=== PATIENT | male | born 1965 | race Caucasian/White ===

== ENCOUNTER → 2019-07-28 15:04 | Outpatient (CLI) | payer OTHER, SELFPAY ==
--- NOTE | 2019-07-28 | CT_ITS ---
PROCEDURE: CT LUNG SCREENING CLINICAL INDICATION: PERSONAL HX OF NICOTINE DEPENDENCE Thirty-one pack-year smoking history, asymptomatic for lung cancer COMPARISON: No exams were available for comparison TECHNIQUE: The exam was performed on a GE Light Speed [address] scanner using 2.90 mGy CTDI. A low dose helical CT CHEST was performed on a multi-detector scanner. All CT scans at the facility use one or more dose reduction, viz: automated exposure control, ma/kV adjustment per patient size (including targeted exams where dose is matched to indication, i.e. head), or iterative reconstruction technique. The LDCT was performed in a facility that meets the criteria for the screening program. Data regarding this exam was submitted to ACR which is an approved registry. The order for this exam indicates that it came as a result of a lung cancer screening counseling shard decision-making visit that included all the elements required of such a visit including smoking cessation. The radiologist interpreting this exam meets the CMS criteria for the LDCT lung cancer screening program. The exam is reported using the Lung-RADS classification scale and reported to the ACR registry. NOTE: This study was performed for the specific purposes of lung cancer screening and is not an alternative to diagnostic chest CT. RADIATION DOSE: CTDI vol(CT dose Index-volume) = 2.90mG DLP (Dose Length Product) = 97.95 mGcm FINDINGS: COPD changes. 4 mm noncalcified nodule right middle lobe image 52 series 4. Calcified granuloma left upper lobe. There are some scattered ground-glass opacities nonspecific OTHER FINDINGS: Minimal coronary artery calcification noted. There are few small nodes in the axilla IMPRESSION: Lung rads category 2, benign Recommend annual screening LD CT Dictated by: Anthony Ling MD 07/29/2019 14:45 Electronically signed by Anthony Ling MD in [place] 07/29/2019 14:45
== END ==
PROVIDERS: PCP Family Medicine; Visit Provider Family Medicine
DX: Z87.891 Personal history of nicotine dependence (principal); Z12.2 Encounter for screening for malignant neoplasm of respiratory organs

== ENCOUNTER → 2020-05-30 11:52 | Outpatient (CLI) | payer OTHER, SELFPAY ==
[2020-05-30 12:54] LABS: Basophils # 0.1 K/mm3 (0-0.2); Basophils % 0.8 % (0.1-2.0); Eosinophils # 0.5 K/mm3 (0.0-0.4); Eosinophils % 3.6 % (0.1-12.0); Hematocrit 49.9 % (42.0-52.0); Hemoglobin 16.2 g/dL (14.1-18.0); Lymphocytes # 2.7 K/mm3 (0.7-4.5); Lymphocytes % 20.9 % (10-50); Mean Corpuscular HGB Conc 32.5 g/dL (31.8-35.4); Mean Corpuscular Hemoglobin 31.3 pg (27.0-31.2); Mean Corpuscular Volume 96.3 fl (80-94); Mean Platelet Volume 8.6 fl (7.4-10.4); Monocytes # 0.9 K/mm3 (0.1-1.0); Monocytes % 6.9 % (1.7-9.3); Neutrophils # 8.9 K/mm3 (1.8-7.8); Neutrophils % 67.9 % (37.0-80.0); Platelet Count 208 K/mm3 (142-424); Red Blood Count 5.18 M/mm3 (4.60-6.20); Red Cell Distribution Width 13.8 % (11.5-17.5); White Blood Count 13.1 K/mm3 (4.8-10.8)
== END ==
PROVIDERS: PCP Nurse Practitioner; Visit Provider Nurse Practitioner
DX: Z03.818 Encounter for observation for suspected exposure to other biological agents ruled out (principal)
CPT/HCPCS: 36415; 85025; U0003

== ENCOUNTER → 2021-03-06 09:42 | Outpatient (CLI) | payer OTHER, SELFPAY | PROVIDERS: PCP Family Medicine; Visit Provider Nurse Practitioner | DX: Z20.822 Contact with and (suspected) exposure to COVID-19 (principal) | CPT/HCPCS: C9803; U0003; U0005 ==

== ENCOUNTER → 2021-11-03 13:14 | Outpatient (CLI) | payer OTHER, SELFPAY ==
--- NOTE | 2021-11-03 13:23 | CT_ITS ---
FINAL REPORT CLINICAL HISTORY: HISTORY OF NICOTINE. SCREENING FRO LUNG CANCER. smoker 1.5 ppd x 15 years cough. no c/o chest pain or copd COMPARISON: July 28, 2019 FINDINGS: CT CHEST SCREENING CTDI vol (mGy): 2.90 DLP (mGy-cm): 105.51 Axial images were obtained from the lung apex to the mid abdomen by computed tomography. Low-dose protocol was utilized. FINDINGS: CHEST: There is no axillary adenopathy. There is no hilar or mediastinal adenopathy. The heart is proper size. There is no pericardial or pleural effusion. Limited images of the upper abdomen are unremarkable. Lung window images demonstrate mild emphysema. There is mild scarring. Again noted are patchy bilateral ground-glass opacities which are slightly worse and may represent alveolitis or edema. There is a stable nodule in the right middle lobe measuring 5 mm seen on image 54. There are several calcified granulomas.. IMPRESSION: Lung RADS category 1S*. Recommend 12 month follow-up low-dose chest CT. * S - Pulmonary ground-glass opacities. Reviewed, Interpreted and Dictated by Brandon Loaiza III, MD Transcribed by Jacqueline Rocha Authenticated and . [facility]
== END ==
PROVIDERS: PCP Family Medicine; Visit Provider Family Medicine
DX: Z87.891 Personal history of nicotine dependence (principal); Z12.2 Encounter for screening for malignant neoplasm of respiratory organs
CPT/HCPCS: 71271

== ENCOUNTER → 2023-04-09 15:22 | Outpatient (CLI) | payer OTHER, SELFPAY ==
--- NOTE | 2023-04-09 15:25 | CT_ITS ---
FINAL REPORT TECHNIQUE: Axial images were obtained from the lung apex to the mid abdomen by computed tomography. This study was performed with techniques to keep radiation doses as low as reasonably achievable (ALARA). Individualized dose reduction techniques using automated exposure control or adjustment of mA and/or kV according to the patient's size were employed. CLINICAL HISTORY: NICOTINE DEPENDENCY, SMOKER FOR 30 YEARS 1PPD COMPARISON: 11/03/2021 FINDINGS: CHEST CT LOW DOSE CTDI vol (mGy): 2.90 DLP (mGy-cm): 104.99 There is no axillary adenopathy. There is no hilar or mediastinal adenopathy. The heart is normal in size. There is no pericardial or pleural effusion. Note is made of emphysema. There is evidence of prior granulomatous disease. Subpleural ground-glass opacities are seen bilaterally, unchanged from prior. There is a stable right middle lobe nodule measuring 6 mm best seen on image 59. Limited images of the upper abdomen are unremarkable. IMPRESSION: Right middle lobe nodule, unchanged from prior. Lung RADS category 2. Recommend 12 month follow-up low-dose chest CT. Modifier S: Subpleural ground-glass opacities bilaterally. Reviewed, Interpreted and Dictated by Talya Haro MD Transcribed by Denise Shirley Authenticated and [facility]
== END ==
PROVIDERS: PCP Family Medicine; Visit Provider Family Medicine
DX: Z12.2 Encounter for screening for malignant neoplasm of respiratory organs (principal); Z87.891 Personal history of nicotine dependence
CPT/HCPCS: 71271

== ENCOUNTER 2023-12-22 14:56 | Outpatient (CLI) | payer BC, SELFPAY ==
--- NOTE | 2023-12-22 15:04 | XR_ITS ---
FINAL REPORT CLINICAL HISTORY: PAIN IN LEFT SHOULDER FINDINGS: Three views show no evidence of acute displaced fracture or dislocation of the visualized bony architecture. There are minimal degenerative changes. IMPRESSION: No acute process. Reviewed, Interpreted and Dictated by Zackary Sy MD Transcribed by Denise Shirely Authenticated and [facility]
== END 2023-12-22 23:59 | disposition home or self-care (01) ==
PROVIDERS: PCP Family Medicine; Visit Provider Family Medicine
DX: M25.512 Pain in left shoulder (principal)
CPT/HCPCS: 73030

== ENCOUNTER 2024-09-05 08:49 | Outpatient (CLI) | payer BC, SELFPAY ==
--- NOTE | 2024-09-05 09:00 | MR_ITS ---
FINAL REPORT TECHNIQUE: Multiplanar MR without contrast CLINICAL HISTORY: Lt Shoulder Pain LROM UNKNOWN INJURY FINDINGS: Marrow signal: Unremarkable Glenohumeral joint: Mild degenerative changes. AC joint: Moderate arthropathy without rotator cuff impingement. Rotator cuff: Focal full-thickness tear at the junction of the supraspinatus and infraspinatus tendons. Subscapularis tendon intact. Labrum: Normal morphology without tear Biceps tendon: Intra-articular long head biceps tendon intact. IMPRESSION: Focal full-thickness tear at the junction of the supraspinatus and infraspinatus tendons. No labral tear. Reviewed, Interpreted and Dictated by Zackary Sy MD Transcribed by Denise Shirley Authenticated and [facility]
--- NOTE | 2024-09-05 09:04 | XR_ITS ---
FINAL REPORT CLINICAL HISTORY: r/o metallic foreign body for mri clearance hx of metal in left eye COMPARISON: none FINDINGS: ORBITS Look up and look down views were obtained. No radiopaque/metallic foreign body identified. IMPRESSION: No foreign body. Reviewed, Interpreted and Dictated by Zackary Sy MD Transcribed by Jacqueline Rocha Authenticated and [facility]
== END 2024-09-05 23:59 | disposition home or self-care (01) ==
PROVIDERS: PCP Family Medicine; Visit Provider Physician Assistant
DX: M25.512 Pain in left shoulder (principal); M75.02 Adhesive capsulitis of left shoulder; M67.912 Unspecified disorder of synovium and tendon, left shoulder
CPT/HCPCS: 70200; 73221

== ENCOUNTER 2024-09-26 07:47 | Outpatient (RCR) | payer BC, SELFPAY ==
--- NOTE | 2024-09-26 12:45 | HMH.OTOPEV ---
OT Inpatient Evaluation Rehab OT Outpatient Eval Start: 09/26/24 08:37 Freq: Status: Active Protocol: Document 09/26/24 08:37 RMRASHEL (Rec: 09/26/24 12:43 [email or web address] [id number]) E-signed By Esteban Burch, OT Outpatient Therapy Subjective History Subjective History Pt is a 59 year old male who reports to therapy for initial evaluation to left shoulder. Pt reports he has had pain on and off in the left shoulder since 2016. He does not recall a specific injury causing the pain to begin. 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 Both jobs required significant upper body repetitive use with push/pulling, lifting, etc. Pt does demonstrate with a decline in AROM and strength at left shoulder. He is left hand dominant. Pt has had a MRI completed with the following results: Focal full- thickness tear at the junction of the supraspinatus and infraspinatus tendons. No labral tear. Pt will continue to be seen for OT services in order to address left shoulder deficits. Short term goals: 1. Pt will increase left shoulder flexion to 140 degrees in order to complete daily overhead tasks independently ~50% of the time . 2. Pt will increase L shoulder abduction to 130 degrees to complete upper body dressing independently ~50% of the time. 3. Pt will increase L shoulder ER/IR to 75 degrees ( ER) and 60 degrees (IR) in order to complete lower body dressing (putting on and taking off belt) independently ~50% of the time. 4. Pt will increase strength to 4-/5 throughout left shoulder in order to complete heavier household tasks ( laundry, mopping, vacuuming) independently ~50% of the time . 5. Pt will verbalize decreased pain levels at worst in L shoulder to a 5/10 in order to complete daily ADLs independently ~50% of the time . 6. Pt will demonstrate improved endurance by completing left shoulder exercises for ~20 minutes prior to rest break in order to increase his tolerance for daily work activities. 7. Pt will demonstrate independence with HEP of AAROM exercises to increase overall functional use of left shoulder in daily activities ~ 75% of the time. slabber goals: 1. Pt will increase L shoulder flexion to 150 degrees in order to complete daily overhead tasks independently ~75% of the time . 2. Pt will increase L shoulder abduction to 140 degrees to complete upper body dressing independently ~75% of the time. 3. Pt will increase L shoulder ER/IR to 80 degrees ( ER) and 70 degrees (IR)in order to complete lower body dressing (putting on and taking off belt) independently ~75% of the time. 4. Pt will increase strength to 4/5 throughout left shoulder in order to complete heavier household tasks ( laundry, mopping, vacuuming) independently ~75% of the time . 5. Pt will verbalize decreased pain levels at worst in L shoulder to a 3/10 in order to complete daily ADLs independently ~75% of the time . 6. Pt will demonstrate improved endurance by completing L shoulder exercises for ~30 minutes prior to rest break in order to increase his tolerance for daily work activities. 7. Pt will demonstrate independence with HEP of Rotator cuff strengthening exercises to increase overall functional use of L shoulder for daily activities ~90% of the time. New diagnosis of cancer in past 12 No months? Chief Complaint Pain,Stiff,Weakness Symptom Type Ache,Throb,Sharp,Dull Symptoms Relieved By Rest/Positioning Symptoms Aggravated By Physical Activity,Lifting Prior Functional Limitations None Current Functional Limitations Reaching,Lifting,Housework, Dressing,Sleeping,Standing, Recreation Activity Symptom Description Constant but Variable Level of pain today (0-10) 1 Pain scale - at its best (0-10) 1 Pain scale - at its worst (0-10) 10 Shoulder/Elbow Eval Shoulder Objective Measurements Shoulder ROM Left Shoulder Abduction Active Range of 115 degrees Motion (degrees) Shoulder Flexion Active Range of Motion 130 degrees (degrees) Query Text: Shoulder External Rotation Active Range 65 degrees of Motion (degrees) Shoulder Internal Rotation Active Range 55 degrees of Motion (degrees) Shoulder MMT Shoulder Abduction Strength Grade 3+ Fair+ Shoulder Flexion Strength Grade 3+ Fair+ Shoulder External Rotation Strength 3+ Fair+ Grade Shoulder Internal Rotation Strength 3+ Fair+ Grade Elbow Objective Measurements QuickDASH Activities Please rate your ability to do the following activities in the last week by selecting the number below the appropriate response. 1. Open a tight or new jar. Mild difficulty 2. 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 3. Carry a shopping bag or briefcase. Mild difficulty 4. Wash your back. Moderate difficulty 5. Use a knife to cut food. Mild difficulty 6. Recreational activities in which you Moderate difficulty take some force or impact through your arm, shoulder, or hand (e.g., golf, hammering, tennis, etc.). 7. During the past week, to what extent Moderately has your arm, shoulder or hand problem interfered with your normal social activities with family, friends, neighbors or groups? 8. During the past week, were you Slightly limited limited in your work or other regular daily activites as a result of your arm, shoulder or hand problem? 9. Arm, shoulder or hand pain. Moderate 10. Tingling (pins and needles) in your Moderate arm, shoulder or hand. 11. During the past week, how much Mild difficulty difficulty have you had sleeping because of the pain in your arm, shoulder or hand? Quick DASH 27 OT Outpatient Assessment Impairments Problems/Impairments Palpation Tenderness,Impaired Range of Motion,Impaired Strength,Impaired Endurance, Impaired Lifting,Impaired Dressing,Impaired Shower/ Bathing,Impaired Household Care,Impaired Recreational Activities,Impaired Work Activities,Subjective C/O Pain Prognosis Rehab Potential Good Clinical Impression Consistent with Diagnosis Yes Short Term Goals Number of Weeks See history Senior Care Goals Number of Weeks See history Outpatient Therapy Plan of Care Treatment Plan May Include Therapeutic Exercise Including Home Yes Exercise Program Manual Therapy Techniques Yes Neuromuscular Re-education Yes Therapeutic Activities to Return to Yes Previous Functional/Work Level Dry Needling Yes Thermal Modalities Yes Electrical Stimulation Yes Ultrasound/Phonophoresis Yes Iontophoresis Yes Parrafin Yes Massage Yes Eval/Re-Eval Yes Frequency Times per week 2 Duration Number of Weeks 6 Addendums This patient is a candidate for social No or vocational rehab? Patient/Guardian verbally acknowledges Yes understanding of treatment program and consents to further treatment? Patient/Guardian verbally acknowledges Yes understanding of diagnosis, prognosis and goals for treatment? Eval Complexity OT Charge 31471 - Moderate Complexity PHYSICIAN CERTIFICATION: I certify the specified therapy services for Herminio Davis are required, authorized, and reviewed every 30 days.
== END 2024-09-26 23:59 | disposition home or self-care (01) ==
LOC: OT 07:47
PROVIDERS: PCP Family Medicine; Visit Provider Physician Assistant
DX: M75.102 Unspecified rotator cuff tear or rupture of left shoulder, not specified as traumatic (principal)
CPT/HCPCS: 97166

== ENCOUNTER 2024-10-27 11:00 | Outpatient (RCR) | payer BC, SELFPAY | END 2024-10-27 23:59 | disposition home or self-care (01) | LOC: OT 11:00 | PROVIDERS: Visit Provider Family Medicine | DX: M67.814 Other specified disorders of tendon, left shoulder (principal) | CPT/HCPCS: 97014; 97110; 97140; 97168; G0283 ==

== ENCOUNTER 2024-11-24 11:00 | Outpatient (RCR) | payer BC, SELFPAY | END 2024-11-24 23:59 | disposition home or self-care (01) | LOC: OT 11:00 | PROVIDERS: Visit Provider Family Medicine | DX: M75.100 Unspecified rotator cuff tear or rupture of unspecified shoulder, not specified as traumatic (principal) | CPT/HCPCS: 97014; 97110; 97140; G0283 ==

== ENCOUNTER 2025-01-11 06:41 | Outpatient (CLI) | payer BC, SELFPAY ==
--- OUTSIDE RECORDS SUMMARY | 2024-11-22 06:45 | XMS_ITS ---
Author Organization [facility] Address [address] [place] [phone] Care Team Providers Care Cooper Helper Name Role Phone Carmine Wright Primary Care [...] (GB8,KM18,jj29) Grossing services provided by [facility], [facility], d/b/a [address] [place], [address] Ayan Cain MD, [employer]. Microscopic Description: Arising from the epidermis are [...] Report Technical services provided by [facility], [facility], d/b/a [facility], [address] [place] [address] , [place] [address] Ayan Cain MD, [employer]. Case reviewed and diagnosis rendered at [facility], [facility], d/b/a [facility], [address] [place] [address] , [place] [address] Ayan Cain MD, [employer]. CONFIDENTIAL REASON FOR VISIT bump on neck [...] Status Risk Notes Problem Erectile dysfunction (disorder) (965860883) Erectile dysfunction, unspecified erectile dysfunction type (N52.9) Active confirmed Vital Signs Blood pressure systolic 124 mm Hg 11/23/19 25 Blood pressure diastolic 76 mm Hg 025 Heart Rate 85 /min 11/22/2024 Height 69.50 in 11/22/2024 Weight 205.6 lbs 11/22/2024 BMI 29.92 kg/m2 11/22/2024 Encounters Encounter Location Date Provider Diagnosis [facility] [address] [facility] 36 [facility] [address] [place] [phone] 11/22/2024 Carmine Wright Neoplasm of uncertai n [...] Name:Carmine Deutsch ry, 04/06/2025 09:00:00 AM, [address] [facility] 36 [facility], [address], [place], [phone], Procedure Notes * Category Sub-Category Detail Notes [...] flexible blade was used to harvest a wholesale representative specimen, light electrocautery of excision site for hemostasis Progress Notes * HERMINIO DAVISDOB:[birth year] (59 yo M)Acc No.[id number]:11/22/2024 Progress Notes Patient: HERMINIO ROCHA Provider: Colby Wright M.D. :1965 A ge:59 Y S ex:Male Date:11/22/2024 Address:[address] [place] [address] [address] [id number] Subjective: * Chief Complaints: * 1 . [...] Colonoscopy 2021. * Hospitalization/Major Diagno stic Procedure: [facility] 03/23/2020. * Family History: F ather: 59 yrs, [place]. M other: alive. P aternal Grand Father: [...] flexible blade was used to harvest a wholesale representative specimen, light electrocautery of excision site for hemostasis. * Procedure Codes: 1 1306 SHAVE LESION,SCALP,NECK,HANDS,FEET 0.6 TO 1.0 CM, Modifiers: 25 * Follow Up: v ia phone to report progress * Images: Billing Information: * Visit Code: 17612 Office Visit, Est Pt., Level 3. * Procedure Codes: 95414 SHAVE LESION,SCALP,NECK,HANDS,FEET 0.6 TO 1.0 CM. Modifiers: 25 * Electronic signature of Yi Wright MD on 01/11/2025 at 06:43 AM EDT Sign off status: Pending * Provider: Colby Wright M.D. Date: 0 11/22/2024 Generated for Anastasia bedolla/Roberth/eTransmitting on: 0 01/11/2025 06:43 AM EDT History and Physical Notes * HPI [...]
--- OUTSIDE RECORDS SUMMARY | 2024-12-27 05:30 | XMS_ITS ---
Author Organization [facility] Address [address] [place] [id number] Care Team Providers Care Training And Development Manager Name Role Phone Kyle Carmine Primary Care [...] Problem Basal cell carcinoma of neck (disorder) (220804656) Basal cell carcinoma (BCC) of neck (C44.41) Active confirmed Vital Signs Blood pressure systolic 116 mm Hg 12/28/19 25 Blood pressure diastolic 74 mm Hg 025 Heart Rate 61 /min 12/27/2024 Height 69.50 in 12/27/2024 Weight 207 lbs 12/27/2024 BMI 30.13 kg/m2 12/27/2024 Encounters Encounter Location Date Provider Diagnosis [facility] [facility] [facility] [address] [facility] [address] [place] [id number] 12/27/2024 Carminedulce TamayoWylie Basal cell carcinoma (BCC) of neck C44.41 [...] Marks Belkisalejandro ry, 04/06/2025 09:00:00 AM, [address] [facility] 36 [facility], [address], [place], [phone], Progress Notes * JEAN DAVISDOB:[birth year] (59 yo M)Acc No.[id number]:12/27/2024 Progress Notes Patient: JEAN ROCHA Provider: Colby Wright M.D. :1965 A ge:59 Y S ex:Male Date:12/27/2024 Address:[address] [place] [address] [id number] Subjective: * Chief Complaints: * 1 . [...] 2021. * Hospitalization/Major Diagno stic Procedure: [facility] ER 03/23/2020. * Family History: F ather: 59 yrs, [place]. M other: alive. P aternal Grand Father: [...] * Images: Billing Information: * Visit Code: 65441 Office Visit, Est Pt., Level 3. * Procedure Codes: 3074F SYST BP LT 130 MM HG. 3078F DIAST BP < 80 MM HG. * Electronic signature of Yi Wright MD on 01/11/2025 at 06:44 AM EDT Sign off status: Pending * Provider: Colby Wright M.D. Date: 0 12/27/2024 Generated for Anastasia bedolla/Roberth/eTransmitting on: 0 01/11/2025 06:44 AM EDT History and Physical Notes * [...]
--- OUTSIDE RECORDS SUMMARY | 2025-01-04 09:27 | XMS_ITS ---
[facility] [address] [facility] 36 [facility] [address] [place] [id number] Care Team Providers Care Print Line Tailer Name Role Phone Carmine Wright Primary Care Provider REASON FOR VISIT CT chest scan Encounters Encounter Location Date Provider Diagnosis [facility] [address] [facility] 36 [facility] [address] [place] [id number] 01/04/2025 Carmine Wright Encounter for screen ing for malignant neoplasm of respiratory organs Z12.2 and Cigarette smoker F17.210 Assessments Encounter Date Diagnosis (ICD Code) Assessment Notes Treatment Notes Treatment Clinical Notes Section Notes 01/04/2025 Encounter for screening for malignant neoplasm of respiratory organs (ICD-10 - Z12.2) 01/04/2025 Cigarette smoker (ICD-10 - F17.210) Plan Of Treatment Pending Test Test Name Order Date CT Scan : Chest, low dose 01/04/2025 Next Appt Details Provider Name:Carmine Deutsch ry, 04/06/2025 09:00:00 AM, [address], [address], [place], [phone], Progress Notes * JEAN DAVISDOB:[birth year] (59 yo M)Acc No.[id number]:01/04/2025 Patient: JEAN ROCHA :1965 A ge:59 Y S ex:Male Address:[address] [facility] [address] [place] [address] Subjective: * Chief Complaints: * C T chest scan * Medical History: * Surgical History: * Hospitalization/Major Diagno stic Procedure: * Medications: Objective: * Vitals: * Physical Examination: Assessment: * Assessment: 1. E ncounter for screening for malignant neoplasm of respiratory organs - Z12.2 (Primary) 2 . C igarette smoker - F17.210 Plan: * Treatment: 2.?Cigarette smoker?Imaging: CT Scan : Chest, low dose* Kristie Plaza 01/04/2025 01:29 :46 PM EDT >sent to Darlene for referral to [facility] * Procedure Codes: * true * Date: Generated for Anastasia bedolla/Roberth/Saeitting on: 0 01/11/2025 06:43 AM EDT
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
--- OUTSIDE RECORDS SUMMARY | 2025-01-11 06:44 | XMS_ITS | Clinical Summary ---
Author Organization [employer] ([place], [place], [place], [place]) Address [address] [place] [address] Care Team Providers Care Group Fitness Instructor Name Role Phone Unavailable Primary Care Provider Unavailabl e Social History Tobacco Use Types Packs/Day Years Used Date Smoking Tobacco: Never Assessed Sex and Gender Information Value Date Recorded Sex Assigned at Male 11/25/2021 2:56 PM CDT Legal Sex Male 2:56 PM CDT Gender Identity Male 11/25/2021 2:56 PM CDT Sexual Orientation Not on file Plan of Treatment Not on file
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
--- OUTSIDE RECORDS SUMMARY | 2025-01-11 06:44 | XMS_ITS | Encounter Summary ---
Author Organization [employer] ([place], [place], [place], [place]) Address [address] [place] [id number] Care Team Providers Care Commercial Roofer Name Role Phone Unavailable Primary Care Provider Unavailabl e Encounter Details Date Type Department Care Team (Late st Contact Info) Description 03/23/2020 Transcribed Document [facility] [place] [address] [place] [address] ProviderGaby MD [address] [place] [address] Social History Tobacco Use Types [...] Conversion Note - Historical ProviderMD - 03/23/2020 3:40 PM CDT Electronically signed by Vivienne [facility] Conversion Senior Sales Associate Cerner at 09/13/2022 8:02 PM CDT documented in this encounter Plan of Treatment Not on file documented as of this encounter Visit Diagnoses Not on filedocumented in this encounter
--- OUTSIDE RECORDS SUMMARY | 2025-01-11 06:44 | XMS_ITS | Referral Summary ---
Author Organization [employer] ([place], [place], [place], [place]) Address [address] [place] [address] Care Team Providers Care Electric Spot Welder Name Role Phone Unavailable Primary Care Provider [...]
--- OUTSIDE RECORDS SUMMARY | 2025-01-11 06:44 | XMS_ITS | Encounter Summary ---
Author Organization [employer] ([place], [place], [place], [place]) Address [address] [place] [address] Care Team Providers Care Cannery Tender Engineer Name Role Phone Unavailable Primary Care Provider Unavailabl e Encounter Details Date Type Department Care Team (Late st Contact Info) Description 03/23/2020 Transcribed Document [facility] [place] Family Medicine [address] [place] [address] ProviderGaby MD [address] [place] [address] Social History Tobacco Use Types [...] Conversion Note - Historical ProviderMD - 03/23/2020 3:57 PM CDT ED Discharge Entered On: 03/23/2020 15:57 EDT Performed On: 03/23/2020 15:57 EDT by Barb Valera RN Discharge Process Patient Disposition : Discharge Personal Belongings With Patient : Yes Patient Education Completed : Yes Teaching Evaluation : Verbalizes understanding IV Discontinued : Yes Nursing Documentation Completed : Yes Barb Valera RN - 03/23/2020 15:57 EDT Electronically signed by Vivienne [facility] Conversion Education And Training Manager Cerner at 09/13/2022 8:05 PM CDT documented in this encounter Plan of Treatment Not on file documented as of this encounter Visit Diagnoses Not on filedocumented in this encounter
--- OUTSIDE RECORDS SUMMARY | 2025-01-11 06:44 | XMS_ITS | Encounter Summary ---
Author Organization [employer] ([place], [place], [place], [place]) Address [address] [place] [address] Care Team Providers Care Press Shop Supervisor Name Role Phone Unavailable Primary Care Provider Unavailabl e Encounter Details Date Type Department Care Team (Late st Contact Info) Description 03/23/2020 Transcribed Document [facility] [place] Family Medicine [address] [place] [address] ProviderGaby MD [address] [place] [address] Social History Tobacco Use Types [...] Historical ProviderMD - 03/23/2020 12:47 PM CDT [place] Suicide Severity Rating Scale (C-SSRS) Entered On: 03/23/2020 13:07 EDT Performed On: 03/23/2020 13:07 EDT by DULCE EPSTEIN RN [place] Suicide Severity Rating Scale (C-SSRS) CSSRS Past Month Wish to be : No CSSRS Past Month Suicidal Thoughts : No CSSRS Lifetime Suicide Behavior : No Suicide Severity Rating Score : 0 Suicide Severity Rating : No Additional Care Required at this time Thoughts of Harming/Killing Others : No DULCE EPSTEIN RN - 03/23/2020 13:07 EDT documented in this encounter Plan of Treatment Not on file documented as of this encounter Visit Diagnoses Not on filedocumented in this encounter
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
--- NOTE | 2025-01-11 06:47 | CT_ITS ---
FINAL REPORT TECHNIQUE: Thin section axial images were obtained through the lungs using a low-dose technique per lung cancer screening protocol. Reconstruction images were obtained using the axial data. This study was performed with techniques to keep radiation doses as low as reasonably achievable, (ALARA). Individualized dose reduction techniques using automated exposure control or adjustment of mA and/or kV according to the patient's size were employed. CLINICAL HISTORY: SCREENING, SMOKER current smoker 1ppd x30 yeara COMPARISON: 04/09/2023 FINDINGS: CTDLvol: 2.90 DLP: 106.29 Current smoker 30 pack year history Lungs: There is a right middle lobe nodule measuring 6 mm on series 4 image 55 that is unchanged. A right lower lobe nodule measuring 6 mm on image 46 is also stable. Subpleural predominant interstitial changes and groundglass opacities are similar to prior exam and likely related to chronic interstitial lung disease. Lymph nodes: There are mildly prominent mediastinal lymph nodes, which are unchanged. Mediastinum: Heart size is normal. Pleura/pericardium: No pleural or pericardial effusion. Other: No acute abnormality in the upper abdomen. IMPRESSION: Stable pulmonary nodules. Stable findings of chronic interstitial lung disease. Lung RADS: 2S Modifier S: Subpleural groundglass opacities bilaterally. Recommendation: 12-month follow-up low-dose chest CT. Reviewed, Interpreted and Dictated by Talya Haro MD Transcribed by Jackelyn English Authenticated and [facility]
== END 2025-01-11 23:59 | disposition home or self-care (01) ==
LOC: RAD 06:42
PROVIDERS: PCP Family Medicine; Visit Provider Family Medicine
DX: J84.89 Other specified interstitial pulmonary diseases (principal); R91.8 Other nonspecific abnormal finding of lung field; F17.210 Nicotine dependence, cigarettes, uncomplicated; Z12.2 Encounter for screening for malignant neoplasm of respiratory organs
CPT/HCPCS: 71271

== ENCOUNTER 2025-02-02 11:59 | Outpatient (CLI) | payer BC, SELFPAY ==
--- OUTSIDE RECORDS SUMMARY | 2024-07-07 05:30 | XMS_ITS ---
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 Name Role Phone Carmine Wright Primary Care Provider [phone] Allergies Allergen (clinical drug ingredient) Drug/Non Drug Allergy documented on EMR Reaction Allergy Type Onset Date Status Substance with penicillin structure and antibacterial mechanism of action (substance) Penicillins rash Drug Allergy Active Reason For Referral Diagnosis 1 Pain in left hand (M 79.642) Diagnosis 2 Pain in right hand ( M79.641) Diagnosis 3 Left shoulder pain, unspecified chronicity (M25.512) Diagnosis 4 Tendinitis of left r otator cuff (M75.82) Referral Organization [facility] Referring Provider First Name Carmine Referring Provider Last Name Kyle Referring Provider [facility] Referred Provider Rolanod Louise Referred Provider Specialty Orthopedic S urgery General Notes Darlene Griffiths 10:13:41 AM > 07/11/2024 at 09:45am; patient informed Referral Priority Routine REASON FOR VISIT severe shoulder pain Medications Medication SIG (Take, Route, Fr equency, Duration) Notes Start Date End Date Status Lisinopril 20 MG 1 tab(s) orally once a day; Duration: 90 days Active Janumet XR 50-1000 MG 2 tab(s) orally on ce a day (in the evening); Duration: 90 days Active Meloxicam 15 MG 1 tablet Orally Once a day; Duration: 90 days 09/08/2023 Active B Complex - as directed Orally Active Fish Oil 1000 MG 1 capsule Orally Onc e a day; Duration: 30 day(s) Active Lipitor 40 MG 1 tab(s) orally once a day; Duration: 90 days Active Vital Signs Blood pressure systolic 132 mm Hg 07/07/19 25 Blood pressure diastolic 74 mm Hg 025 Heart Rate 90 /min 07/07/2024 Height 69.50 in 07/07/2024 Weight 207.6 lbs 07/07/2024 BMI 30.21 kg/m2 07/07/2024 Encounters Encounter Location Date Provider Diagnosis [facility] [address] [facility] [address] [facility] [address] [place] [id number] 07/07/2024 Carmine Wright Pain in left shoulde r M25.512 ; Tendinitis of left rotator cuff M75.82 ; Pain in right hand M79.641 ; Pain in left hand M79.642 and History of carpal tunnel release Z98.890 Assessments Encounter Date Diagnosis (ICD Code) Assessment Notes Treatment Notes Treatment Clinical Notes Section Notes 07/07/2024 Pain in left shoulder (ICD-10 - M25.512) 07/07/2024 Tendinitis of left rotator cuff (ICD-10 - M75.82) 07/07/2024 Pain in right hand (ICD-10 - M79.641) 07/07/2024 Pain in left hand (ICD-10 - M79.642) 07/07/2024 History of carpal tunnel release (ICD-10 - Z98.890) Plan Of Treatment Referrals Referral Date Details 07/07/2024 07/07/2024, Rolando Guo Appt Details Follow Up: as scheduled,and prn, Reason: Provider Name:Carmine Deutsch ry, 04/06/2025 09:00:00 AM, [address] [facility] [address] [facility], [address], [place], [phone], Progress Notes * AI JEANDOB:[birth year] (59 yo M)Acc No.[id number]:07/07/2024 Progress Notes Patient: Shaun NICOLE JEAN Provider: Colby Wright M.D. :1965 A ge:58 Y S ex:Male Date:07/07/2024 Address:[address] [place] [address] [address] [place] , [id number] Subjective: * Chief Complaints: * 1 . Severe shoulder pain. * HPI: S houlder/Upper arm: 58 year old male presents with c/o shoulder pain f or 2 years P t complains of lt shoulder pain for quite a while . Pt states that pain is severe and he is not sure what may be causing it. * ROS: D ERMATOLOGY: no R michel. n o H tara. G ASTROENTEROLOGY: no N ausea. n o V omiting. U ROLOGY: no D ifficulty urinating. n o B lood in urine. * Medical History: T ype 2 Diabetes, Hypertension, Hyperlipidemia, RT Eye Intraoccular Histoplasmosis, 2010, LT Perioccular Basal Cell Carcinoma, 2013, Bilateral Carpal Tunnel, 30 Year Smoking Hx as of 2018, Colon Polyps. * Surgical History: U pper Dentures , LT Carpal Tunnel Release , RT Carpal Tunnel Release 01/2016, Colonoscopy 2021. * Hospitalization/Major Diagno stic Procedure: M [facility] 03/23/2020. * Family History: F ather: 59 yrs, [place]. M other: alive. P aternal Grand Father: . P aternal Grand Mother: . M aternal Grand Father: . M aternal Grand Mother: . 1 brother(s) , 2 sister(s) . 1 son(s) , 1 daughter(s) . . * Social History: C URRENT TOBACCO USE S moking Status: Patient does smoke, number of cigarettes per day: 10. C affeine: yes, frequency:. Marital Status: . Past smoking status: no. Alcohol: socially, Type: , Frequency: ,Years: , Determination:. * Medications: T aking B Complex - Capsule as directed Orally , Taking Fish Oil 1000 MG Capsule 1 capsule Orally Once a day , Taking Meloxicam 15 MG Tablet 1 tablet Orally Once a day , Taking Lipitor 40 MG Tablet 1 tab(s) orally once a day , Taking Lisinopril 20 MG Tablet 1 tab(s) orally once a day , Taking Janumet XR 50-1000 MG Tablet Extended Release 24 Hour 2 tab(s) orally once a day (in the evening) , Medication List reviewed and reconciled with the patient * Allergies: P enicillins: rash. Objective: * Vitals: W t:207.6, Temp:97.8, BP:132/74, HR:90, Nurse:maris, Ht: 69.50, BMI:30.21. * Examination: G eneral Examination: General Appearance: N AD. S houlder / Upper arm: Shoulder: left. P alpation: tenderness over AC joint. R kalyn of motion: restricted rotations and abduction. S trength: diminished supraspinatus strength. Assessment: * Assessment: 1. P ain in left shoulder - M25.512 (Primary) 2 . T endinitis of left rotator cuff - M75.82 3 . P ain in right hand - M79.641 4 . P ain in left hand - M79.642 5 . H istory of carpal tunnel release - Z98.890 ? Plan: * Treatment: 2. P ain in right hand Referral To:[facility] Reason: 3. P ain in left hand Referral To:[facility] Reason: 4. O thers Referral To:[facility] Reason: * Procedure Codes: 3 075F SYST BP GE 130 - 139MM HG, 3078F DIAST BP < 80 MM HG * Follow Up: a s scheduled,and prn * Images: Billing Information: * Visit Code: 95995 Office Visit, Est Pt., Level 3. * Procedure Codes: 3075F SYST BP GE 130 - 139MM HG. 3078F DIAST BP < 80 MM HG. * Electronic signature of Yi Wright MD on 02/02/2025 at 12:02 PM EDT Sign off status: Pending * Provider: Colby Wright M.D. Date: 0 07/07/2024 Generated for Anastasia bedolla/Roberth/Mello on: 0 02/02/2025 12:02 PM EDT History and Physical Notes * HPI (History of Present Illness) Category Sub-Category Detail Notes Category Not es Shoulder/Upper arm shoulder pain Pt complains of lt shoulder pain for quite a while . Pt states that pain is severe and he is not sure what may be causing it Examination Category Sub-Category Detail Notes Category Not es General Examination General Appearance: NAD Shoulder / Upper arm Range of motion: restricted rotations and abduction Strength: diminished supraspin atus strength Shoulder: left Palpation: tenderness over AC j oint Consultation Request Notes Referral Date Referring Provider Referred Provider Not es 07/07/2024 Carmine Wright, Gene
--- OUTSIDE RECORDS SUMMARY | 2024-10-04 05:00 | XMS_ITS ---
Author Organization [facility] Address [address] [place] [id number] Care Team Providers Care Liability Claims Representative Name Role Phone Carmine Wright Primary Care Provider Allergies Allergen (clinical drug ingredient) Drug/Non Drug Allergy documented on EMR Reaction Allergy Type Onset Date Status Substance with penicillin structure and antibacterial mechanism of action (substance) Penicillins rash Drug Allergy Active Results Component Value Reference Range Notes Glucose (In-House) Reviewed date:10/05/2024 08:07:08 AM Interpretation:105 Performing Lab: Notes/Report: 105 blood glucose 105 74 - 106 mg/dL Glycohemoglobin A1c (in hous e) Reviewed date:10/05/2024 08:07:08 AM Interpretation:6.8 Performing Lab: Notes/Report: 6.8 glycohemoglobin 6.8% 5 - 6.5 % REASON FOR VISIT 6 months Medications Medication SIG (Take, Route, Fr equency, Duration) Notes Start Date End Date Status Lipitor 40 MG 1 tab(s) orally once a day; Duration: 90 days Active Fish Oil 1000 MG 1 capsule Orally Onc e a day; Duration: 30 day(s) Active B Complex - as directed Orally Active Lisinopril 20 MG 1 tab(s) orally once a day; Duration: 90 days Active Janumet XR 50-1000 MG 2 tab(s) orally on ce a day (in the evening); Duration: 90 days Active Vital Signs Blood pressure systolic 130 mm Hg 10/05/19 25 Blood pressure diastolic 72 mm Hg 025 Heart Rate 86 /min 10/04/2024 Height 69.50 in 10/04/2024 Weight 204 lbs 10/04/2024 BMI 29.69 kg/m2 10/04/2024 Encounters Encounter Location Date Provider Diagnosis [facility] [address] [facility] 36 [facility] [address] [place] [id number] 10/04/2024 Carmine Wright Type 2 diabetes phi itus without complication E11.9 ; Essential hypertension I10 ; Hyperlipidemia, unspecified hyperlipidemia type E78.5 ; Left shoulder pain, unspecified chronicity M25.512 and BMI 29.0-29.9,adult Z68.29 Assessments Encounter Date Diagnosis (ICD Code) Assessment Notes Treatment Notes Treatment Clinical Notes Section Notes 10/04/2024 Type 2 diabetes mellitus without complication (ICD-10 - E11.9) 10/04/2024 Essential hypertension (ICD-10 - I10) 10/04/2024 Hyperlipidemia, unspecified hyperlipidemia type (ICD-10 - E78.5) 10/04/2024 Left shoulder pain, unspecified chronicity (ICD-10 - M25.512) Patient to start physical therapy soon at [facility]. He will follow up with ortho 10/04/2024 BMI 29.0-29.9,adult (ICD-10 - Z68.29) Plan Of Treatment Medication Medication Name Sig Start Date Stop Date Notes Lipitor 40 MG 1 tab(s) orally once a day; Duration: 90 days Lisinopril 20 MG 1 tab(s) orally once a day; Duration: 90 days Janumet XR 50-1000 MG 2 tab(s) orally on ce a day (in the evening); Duration: 90 days Treatment Notes Assessment Notes Left shoulder pain, unspecified chronici ty Patient to start physical therapy soon at [facility]. He will follow up with ortho Next Appt Details Follow Up: 6 Months, Reason: Provider Name:Carmine Deutsch , 04/06/2025 09:00:00 AM, 12[address] [facility] 36 [facility], [address], [place], [phone], Progress Notes * SANDIELORNAJEANDOB:[birth year] (59 yo M)Acc No.[id number]:10/04/2024 Progress Notes Patient: Shaun NICOLE JEAN Provider: Colby Wright M.D. :1965 A ge:59 Y S ex:Male Date:10/04/2024 Address:[address] [place] [id number] Subjective: * Chief Complaints: * 1 . 6 months. * HPI: C ardiology: 59 year old male presents with c/o Blood Pressure Elevated P t here for 6 mo f/u on hypertension, states he is doing well and does not have any concerns. c/o Hyperlipidemia P t is not fasting today. * ROS: D ERMATOLOGY: no R michel. [...] Colonoscopy 2021. * Hospitalization/Major Diagno stic Procedure: [facility] 03/23/2020. * Family History: F ather: 59 yrs, [place]. M other: alive. P aternal Grand Father: [...] capsule Orally Once a day , Taking Lipitor 40 MG Tablet 1 tab(s) orally once a day , Taking Lisinopril 20 MG Tablet 1 tab(s) orally once a day , Taking Janumet XR 50-1000 MG Tablet Extended Release 24 Hour 2 tab(s) orally once a day (in the evening) , Discontinued Meloxicam 15 MG Tablet 1 tablet Orally Once a day , Medication List reviewed and reconciled with the patient * Allergies: P enicillins: rash. Objective: * Vitals: W t: 204, Temp: 97.9, BP: 130/72, HR: 86, Nurse: maris, Ht: 69.50, BMI:29.69. * Examination: E ndocrinology: General Appearance: N AD. H EENT: u nremarkable.?Heart: R SR. L ungs: c lear to auscultation. E xtremities: no leg edema.?Skin: n ormal, no rash. Assessment: * Assessment: 1. T ype 2 diabetes mellitus without complication - E11.9 (Primary) 2 . E ssential hypertension - I10 3 . H yperlipidemia, unspecified hyperlipidemia type - E78.5 4 . L eft shoulder pain, unspecified chronicity - M25.512 5. B [place] 29.0-29.9,adult - Z68.29 Plan: * Treatment: Value Reference Range b lood glucose 105 74 - 106 mg/dL * Brandi Cabral 10/04/2024 09:47:2 2 AM > Helga Plasencia 10/05/2024 08:07:01 AM > See phone encounter ?LAB: Glycohemoglobin A1c (in house) (Collection Date & Time - 10/04/2024)? 6.8* Value Reference Range g lycohemoglobin 6.8% 5 - 6.5 % * Brandi Cabral 10/04/2024 09:50:4 1 AM > Helga Plasencia 10/05/2024 08:07:01 AM > See phone encounter 2.?Essential hypertension? Refill Lisinopril Tablet, 20 MG, 1 tab(s), orally, once a day, 90 days, 90, Refills 1.??3.?Hyperlipidemia, unspecified hyperlipidemia type? Refill Lipitor Tablet, 40 MG, 1 tab(s), orally, once a day, 90 days, 90, Refills 1.??4.?Left shoulder pain, unspecified chronicity? Notes: Patient to start physical therapy soon at [facility]. He will follow up with ortho?? * Procedure Codes: 3 6416 CAPILLARY BLOOD DRAW, 52188 GLUCOSE TEST, 32402 GLYCATED HEMOGLOBIN TEST, Modifiers: QW , 3044F HG A1C LEVEL LT 7.0%, 3075F SYST BP GE 130 - 139MM HG, 3078F DIAST BP < 80 MM HG * Follow Up: 6 Months * Images: Billing Information: * Visit Code: 26879 Office Visit, Est Pt., Level 4. * Procedure Codes: 00386 CAPILLARY BLOOD DRAW. 44301 GLUCOSE TEST. 12790 GLYCATED HEMOGLOBIN TEST. Modifiers: QW 3044F HG A1C LEVEL LT 7.0%. 3075F SYST BP GE 130 - 139MM HG. 3078F DIAST BP < 80 MM HG. * Electronic signature of Yi Wright MD on 02/02/2025 at 12:01 PM EDT Sign off status: Pending * Provider: Colby Wright M.D. Date: 0 10/04/2024 Generated for Anastasia bedolla/Roberth/Flipsmitting on: 0 02/02/2025 12:01 PM EDT History and Physical Notes * HPI (History of Present Illness) Category Sub-Category Detail Notes Category Not es Cardiology Blood Pressure Elevated Pt here for 6 mo f/u on hypertension, states he is doing well and does not have any concerns Hyperlipidemia Pt is not fasting to day Examination Category Sub-Category Detail Notes Category Not es Endocrinology HEENT: unremarkable Heart: RSR Lungs: clear to auscultatio n Extremities: no leg edema General Appearance: NAD Skin: normal, no rash
--- OUTSIDE RECORDS SUMMARY | 2024-11-22 06:45 | XMS_ITS ---
Author Organization [facility] Address [address] [place] [id number] Care Team Providers Care Septic Tank Servicer Name Role Phone Carmine Wright Primary Care Provider [phone] Allergies Allergen (clinical drug ingredient) Drug/Non Drug Allergy documented on EMR Reaction Allergy Type Onset Date Status Substance with penicillin structure and antibacterial mechanism of action (substance) Penicillins rash Drug Allergy Active Results Component Value Reference Range Notes P-Surgical Pathology Reviewed date:11/27/2024 06:42:32 PM Interpretation:basal cell carcinoma extending to deep margins Performing Lab: Notes/Report: Surgical Pathology View Report Patient Name: HERMINIO DAVIS Age-Sex-: 59y M 1965 Procedure Date: 11/22/2024 Accession Date: 11/23/2024 Pt Acct#: Report Date: 11/27/2024 Location: OFFICE Physician(s): Carmine Wright MD P A T H O L O G Y R E P O R T DIAGNOSIS: Left posterior neck, shave biopsy: Basal cell carcinoma, superficial, extending to the deep margin. Jacqueline Velazco MD electronically signed 11/27/2024 09:56 AM Gross Description: Received in formalin labeled Herminio Davis. Specimen site is listed as left posterior neck per the requisition. Specimen consists of a pale bustos flaky skin shave measuring 0.7 x 0.4 x less than 0.1 cm. Entire surface is flaky in texture. The margin is inked blue. Specimen is bisected and submitted in , 07/01. (GB8,KM18,jj29) Grossing services provided by [facility], [facility], d/b/a [address] [place], [address] Ayan Cain MD, Teller. Microscopic Description: Arising from the epidermis are small buds and nests of basaloid epithelium. There is focal palisading and mild cytologic atypia present. These are features of a superficial basal cell carcinoma. Clinical History: Neoplasm of uncertain behavior of skin (D48.5) Specimen List: Left posterior neck Unless specified otherwise above, the quality of the H and E and any other stains performed is satisfactory, and any internal or external positive and negative controls react appropriately. End of Report Technical services provided by [facility], [facility], d/b/a [facility], [address] [place] [address] , [place] [address] Ayan Cain MD, Teller. Case reviewed and diagnosis rendered at [facility], [facility], d/b/a [facility], [address] [place] [address] , [place] [address] Ayan Cain MD, Teller. CONFIDENTIAL REASON FOR VISIT bump on neck (left side) Medications Medication SIG (Take, Route, Frequency, Duration) Notes Start Date End Date Status Lisinopril 20 MG 1 tab(s) orally once a day; Duration: 90 days Active Janumet XR 50-1000 MG 2 tab(s) orally on ce a day (in the evening); Duration: 90 days Active Lipitor 40 MG 1 tab(s) orally once a day; Duration: 90 days Active B Complex - as directed Orally Active Fish Oil 1000 MG 1 capsule Orally Onc e a day; Duration: 30 day(s) Active Sildenafil Citrate 20 MG 1 to 5 tablets Orally Once a day As needed 11/22/2024 Active Problems Problem Type SNOMED Code ICD Code Onset Dates Problem Status W/U Status Risk Notes Problem Erectile dysfunction (disorder) (673190012) Erectile dysfunction, unspecified erectile dysfunction type (N52.9) Active confirmed Vital Signs Blood pressure systolic 124 mm Hg 11/23/19 25 Blood pressure diastolic 76 mm Hg 025 Heart Rate 85 /min 11/22/2024 Height 69.50 in 11/22/2024 Weight 205.6 lbs 11/22/2024 BMI 29.92 kg/m2 11/22/2024 Encounters Encounter Location Date Provider Diagnosis [facility] [facility] 36 [facility] [address] [place] [phone] 11/22/2024 Carmine Wright Neoplasm of uncertai n behavior of skin of neck D48.5 and Erectile dysfunction, unspecified erectile dysfunction type N52.9 Assessments Encounter Date Diagnosis (ICD Code) Assessment Notes Treatment Notes Treatment Clinical Notes Section Notes 11/22/2024 Neoplasm of uncertain behavior of skin of neck (ICD-10 - D48.5) 11/22/2024 Erectile dysfunction, unspecified erectile dysfunction type (ICD-10 - N52.9) Plan Of Treatment Medication Medication Name Sig Start Date Stop Date Notes Sildenafil Citrate 20 MG 1 to 5 tablets Orally Once a day 11/22/2024 Next Appt Details Follow Up: via phone to repo rt progress, Reason: Provider Name:Carmine Deutsch ry, 04/06/2025 09:00:00 AM, [address] [facility] 36 [facility], [address], [place], [phone], Procedure Notes * Category Sub-Category Detail Notes Shave Biopsy Indication: Uncertain nature of the lesion Consent: All risks, benefits, and potential complications were discussed including bleeding, infection, scarring, and the need for further surgery to improve the resultant scar or to remove a cancerous process. It was explained that this procedure was for diagnostic purposes and was not being performed with the intention of curing the condition Method: The biopsy was taken using the tangential shave technique. The area was first prepped with Betadine and anesthetized with 1% Lidocaine with epi. A flexible blade was used to harvest a corporate representative specimen, light electrocautery of excision site for hemostasis Progress Notes * HERMINIO DAVISDOB:[birth year] (59 yo M)Acc No.[id number]:11/22/2024 Progress Notes Patient: HERMINIO ROCHA Provider: Colby Wright M.D. :1965 A ge:59 Y S ex:Male Date:11/22/2024 Address:[address] [place] [address] [address] [id number] Subjective: * Chief Complaints: * 1 . Bump on neck (left side). * HPI: D ermatology: 59 year old male presents with c/o knot P t complains of knot behind lt ear. Pt states when he is outside it does itch but knot is not painful. * ROS: D ERMATOLOGY: no R michel. [...] Colonoscopy 2021. * Hospitalization/Major Diagno stic Procedure: [facility] 03/23/2020. * Family History: F ather: 59 yrs, [place]. M other: alive. P aternal Grand Father: [...] ,Years: , Determination:. * Medications: T aking Lisinopril 20 MG Tablet 1 tab(s) orally once a day , Taking Janumet XR 50- 1000 MG Tablet Extended Release 24 Hour 2 tab(s) orally once a day (in the evening) , Taking Lipitor 40 MG Tablet 1 tab(s) orally once a day , Taking B Complex - Capsule as directed Orally , Taking Fish Oil 1000 MG Capsule 1 capsule Orally Once a day , Medication List reviewed and reconciled with the patient * Allergies: P enicillins: rash. Objective: * Vitals: W t: 205.6, Temp: 98.0, BP: 124/76, HR: 85, Nurse: gretel/maris, Ht: 69.50, BMI:29.92. * Examination: G eneral Examination: General Appearance: N AD. S kin: l eft lateral neck with a 7 mm x 4 mm, pink and rough pearly patch of skin just behind the ear. Assessment: * Assessment: 1. N eoplasm of uncertain behavior of skin of neck - D48.5 (Primary) 2 . E rectile dysfunction, unspecified erectile dysfunction type - N52.9 Plan: * Treatment: Value Reference Range S urgical Pathology View Report - * Day Dockery 11/27/2024 06:4 2:25 PM EDT > See phone encounter 2.?Erectile dysfunction, unspecified erectile dysfunction type? Start Sildenafil Citrate Tablet, 20 MG, 1 to 5 tablets, Orally, Once a day As needed, 30, Refills 1.?? * Procedures: S have Biopsy: Indication: U ncertain nature of the lesion. C onsent:?All risks, benefits,and potential complications were discussed including bleeding, infection, scarring, and the need for further surgery to improve the resultant scar or to remove a cancerous process. It was explained that this procedure was for diagnostic purposes and was not being performed with the intention of curing the condition. M ethod: T he biopsy was taken using the tangential shave technique. The area was first prepped with Betadine and anesthetized with 1% Lidocaine with epi. A flexible blade was used to harvest a corporate representative specimen, light electrocautery of excision site for hemostasis. * Procedure Codes: 1 1306 SHAVE LESION,SCALP,NECK,HANDS,FEET 0.6 TO 1.0 CM, Modifiers: 25 * Follow Up: v ia phone to report progress * Images: Billing Information: * Visit Code: 79037 Office Visit, Est Pt., Level 3. * Procedure Codes: 99704 SHAVE LESION,SCALP,NECK,HANDS,FEET 0.6 TO 1.0 CM. Modifiers: 25 * Electronic signature of Yi Wright MD on 02/02/2025 at 12:02 PM EDT Sign off status: Pending * Provider: Colby Wright M.D. Date: 0 11/22/2024 Generated for Anastasia bedolla/Roberth/eTransmitting on: 0 02/02/2025 12:02 PM EDT History and Physical Notes * HPI (History of Present Illness) Category Sub-Category Detail Notes Category Not es Dermatology knot Pt complains of knot behind lt ear. Pt states when he is outside it does itch but knot is not painful Examination Category Sub-Category Detail Notes Category Not es General Examination General Appearance: NAD Skin: left lateral neck wi th a 7 mm x 4 mm, pink and rough pearly patch of skin just behind the ear
--- OUTSIDE RECORDS SUMMARY | 2024-12-27 05:30 | XMS_ITS ---
Author Organization [facility] Address [address] [place] [phone] Care Team Providers Care Medical Records Custodian Name Role Phone Kyle Carmine Primary Care Provider Allergies Allergen (clinical drug ingredient) Drug/Non Drug Allergy documented on EMR Reaction Allergy Type Onset Date Status Substance with penicillin structure and antibacterial mechanism of action (substance) Penicillins rash Drug Allergy Active REASON FOR VISIT Basal Cell Carcinoma not Healing Medications Medication SIG (Take, Route, Frequency, Duration) Notes Start Date End Date Status Fish Oil 1000 MG 1 capsule Orally Onc e a day; Duration: 30 day(s) Active B Complex - as directed Orally Active Sildenafil Citrate 20 MG 1 to 5 tablets Orally Once a day As needed 11/22/2024 Active Lipitor 40 MG 1 tab(s) orally once a day; Duration: 90 days Active Janumet XR 50-1000 MG 2 tab(s) orally on ce a day (in the evening); Duration: 90 days Active Lisinopril 20 MG 1 tab(s) orally once a day; Duration: 90 days Active Problems Problem Type SNOMED Code ICD Code Onset Dates Problem Status W/U Status Risk Notes Problem Basal cell carcinoma of neck (disorder) (074592148) Basal cell carcinoma (BCC) of neck (C44.41) Active confirmed Vital Signs Blood pressure systolic 116 mm Hg 12/28/19 25 Blood pressure diastolic 74 mm Hg 025 Heart Rate 61 /min 12/27/2024 Height 69.50 in 12/27/2024 Weight 207 lbs 12/27/2024 BMI 30.13 kg/m2 12/27/2024 Encounters Encounter Location Date Provider Diagnosis [facility] 36 [facility] [address] [place] [phone] 12/27/2024 Carminedulce [place] Basal cell carcinoma (BCC) of neck C44.41 Assessments Encounter Date Diagnosis (ICD Code) Assessment Notes Treatment Notes Treatment Clinical Notes Section Notes 12/27/2024 Basal cell carcinoma (BCC) of neck (ICD-10 - C44.41) Patient needs to see a MOHS surgeon Plan Of Treatment Treatment Notes Assessment Notes Basal cell carcinoma (BCC) of neck Patie nt needs to see a MOHS surgeon Next Appt Details Follow Up: via phone to repo rt progress, Reason: Provider Name:Carmine Marks Belkisalejandro ry, 04/06/2025 09:00:00 AM, [address] [facility] 36 [facility], [address], [place], [phone], Progress Notes * JEAN DAVISDOB:[birth year] (59 yo M)Acc No.[id number]:12/27/2024 Progress Notes Patient: JEAN ROCHA Provider: Colby Wright M.D. :1965 A ge:59 Y S ex:Male Date:12/27/2024 Address:[address] [place] [address] [id number] Subjective: * Chief Complaints: * 1 . Basal Cell Carcinoma not Healing. * HPI: D ermatology: 59 year old male presents with c/o knot P t had knot removed from behind lt ear on 11/22. Pt's Pathology came back as basal cell carcinoma. Pt states surgical area is not healing well , spot is sore as times but no constant pain. * ROS: D ERMATOLOGY: no R michel. [...] Colonoscopy 2021. * Hospitalization/Major Diagno stic Procedure: [facility] 03/23/2020. * Family History: F ather: 59 yrs, [place]. M other: alive. P aternal Grand Father: [...] capsule Orally Once a day , Taking Sildenafil Citrate 20 MG Tablet 1 to 5 tablets Orally Once a day As needed, Medication List reviewed and reconciled with the patient * Allergies: P enicillins: rash. Objective: * Vitals: W t: 207, Temp: 97.8, BP: 116/74, HR: 61, Nurse: maris, Ht: 69.50, BMI:30.13. * Examination: G eneral Examination: General Appearance: N AD. S kin: l eft neck, behind the ear with a healing biopsy site with a small central ulceration. Assessment: * Assessment: 1. B bree cell carcinoma (BCC) of neck - C44.41 (Primary) Plan: * Treatment: * Procedure Codes: 3 074F SYST BP LT 130 MM HG, 3078F DIAST BP < 80 MM HG * Follow Up: v ia phone to report progress * Images: Billing Information: * Visit Code: 76298 Office Visit, Est Pt., Level 3. * Procedure Codes: 3074F SYST BP LT 130 MM HG. 3078F DIAST BP < 80 MM HG. * Electronic signature of Yi Wright MD on 02/02/2025 at 12:02 PM EDT Sign off status: Pending * Provider: Colby Wright M.D. Date: 0 12/27/2024 Generated for Cedricki graeme/Roberth/eTransmitting on: 0 02/02/2025 12:02 PM EDT History and Physical Notes * HPI (History of Present Illness) Category Sub-Category Detail Notes Category Not es Dermatology knot Pt had knot heladio joshua from behind lt ear on 11/22. Pt's Pathology came back as basal cell carcinoma. Pt states surgical area is not healing well , spot is sore as times but no constant pain Examination Category Sub-Category Detail Notes Category Not es General Examination General Appearance: NAD Skin: left neck, behind th e ear with a healing biopsy site with a small central ulceration
--- OUTSIDE RECORDS SUMMARY | 2025-01-04 09:27 | XMS_ITS ---
Author Organization [facility] Address [address] [facility] 36 [facility] [address] [place] [id number] Care Team Providers Care Wire Harness Assembler Name Role Phone Carmine Wright Primary Care Provider Results Component Value Reference Range Notes CT Scan : Chest, low dose Reviewed date:01/12/2025 04:51:35 PM Interpretation:stable, annual f/u Performing Lab: Notes/Report: stable, annual f/u REASON FOR VISIT CT chest scan Encounters Encounter Location Date Provider Diagnosis [facility] [address] [facility] [address] [place] [id number] 01/04/2025 Carmine Wright Encounter for screen ing for malignant neoplasm of respiratory organs Z12.2 and Cigarette smoker F17.210 Assessments Encounter Date Diagnosis (ICD Code) Assessment Notes Treatment Notes Treatment Clinical Notes Section Notes 01/04/2025 Encounter for screening for malignant neoplasm of respiratory organs (ICD-10 - Z12.2) 01/04/2025 Cigarette smoker (ICD-10 - F17.210) Plan Of Treatment Next Appt Details Provider Name:Carmine Deutsch ry, 04/06/2025 09:00:00 AM, [address] [facility], [address], [place], [phone], Progress Notes * JEFFERY DAVISKendrickDOB:[birth year] (59 yo M)Acc No.[id number]:01/04/2025 Patient: JEAN ROCHA :1965 A ge:59 Y S ex:Male Address:[address] [place], [place] [address] [address] [place] [address] Subjective: * Chief Complaints: * C T [...] 01/04/2025 01:29 :46 PM EDT >sent to [facility] for referral to [facility] * Procedure Codes: * true * Date: Generated for Anastasia bedolla/Roberth/Mello on: 0 02/02/2025 12:02 PM EDT
[2025-02-02 08:18] VITALS: BMI 31.9
--- OUTSIDE RECORDS SUMMARY | 2025-02-02 12:02 | XMS_ITS | Patient Health Record ---
Author Organization [facility] Address [address] [place] [phone] Care Team Providers Care Brand Advocate Name Role Phone Carmine Wright Primary Care [...] 6.8 glycohemoglobin 6.8% 5 - 6.5 % P-Surgical Pathology Reviewed date:11/27/2024 06:42:32 PM Interpretation:basal [...] Grossing services provided by [facility], [facility], d/b/a [address] [place], [address] Ayan Cain MD, Audio/Video Technician. Microscopic Description: Arising from the epidermis are [...] Technical services provided by [facility], [facility], d/b/a [address] , [place] [address] Ayan Cain MD, Audio/Video Technician. Case reviewed and diagnosis rendered at [facility], [facility], d/b/a [address] , [place] [address] Ayan Cain MD, Audio/Video Technician. CONFIDENTIAL Glucose (In-House) Reviewed date:04/06/2024 09:52:46 AM Interpretation:178 Performing Lab: Notes/Report: 178 blood glucose 178 74 - 106 mg/dL Glycohemoglobin A1c (in hous e) Reviewed date:04/06/2024 09:52:46 AM Interpretation:6.7 Performing Lab: Notes/Report: 6.7 glycohemoglobin 6.7% 5 - 6.5 % P-Comprehensive Metabolic Pa nathaly (CMP) Reviewed date:04/06/2024 09:52:46 AM Interpretation:gluc 161, Ca 8.5 Performing Lab: Notes/Report: Test performed by [facility], [address] , [place] [address] Romulo Alvarado MD, Audio/Video Technician CLIA: [id number] Sodium 140 135-145 mmol/L Potassium 4.4 3.5-5.3 [...] 33 Performing Lab: Notes/Report: Test performed by [facility], [employer] [address] [place] [address] , [place] [address] Romulo Alvarado MD, Audio/Video Technician CLIA: [id number] Cholesterol 95 <200 mg/dL Triglycerides 105 <150 [...] Interpretation:Normal Performing Lab: Notes/Report: Test performed by [facility] [address] , [place] [address] Romulo Alvarado MD, Audio/Video Technician CLIA: [id number] PSA 0.52 <4.00 ng/mL Please note this is an ultrasensitive PSA assay with a lower limit of detection of 0.014 ng/mL. This test is performed by the [employer] ECLIA methodology. Values obtained with different assay methods or kits cannot be directly compared. P-TSH reflex to FT4 Reviewed date:04/06/2024 09:52:46 AM Interpretation:Normal Performing Lab: Notes/Report: Test performed by [facility] [address] , [place] [address] Romulo Alvarado MD, Audio/Video Technician CLIA: [id number] TSH reflex to FT4 1.46 0.43-5.25 mU/L P-Microalbumin/Creatinine, R andom Urine Sample Reviewed date:04/06/2024 09:52:46 AM Interpretation:Normal Performing Lab: Notes/Report: Test performed by [facility] [address] , [address], [place] [address] Romulo Alvarado MD, Audio/Video Technician CLIA: [id number] Albumin/Creatinine Ratio, Urine 21 0-30 ug/mg Microalbumin, Urine, Random 5.8 Creatinine, Urine 273.5 CT Scan : Chest, low dose Reviewed date:01/12/2025 04:51:35 PM Interpretation:stable, annual f/u Performing Lab: Notes/Report: stable, annual f/u Reason For Referral Diagnosis 1 Pain in left hand (M 79.642) Diagnosis 2 Pain in right hand ( M79.641) Diagnosis 3 Left shoulder pain, unspecified chronicity (M25.512) Diagnosis 4 Tendinitis of left r otator cuff (M75.82) Referral Organization [facility] Referring Provider First Name Carmine Referring Provider Last Name Kyle Referring Provider [facility] Referred Provider Rolando Louise Referred Provider Specialty Orthopedic S urgery General Notes Darlene Griffiths 10:13:41 AM > 07/11/2024 at 09:45am; patient informed Referral Priority Routine Reason patient can see Dr. Fox in [place] or [place], whichever is the soonest appt Diagnosis 1 Basal cell carcinoma (BCC) of neck (C44.41) Referral Organization [facility] Referring Provider First Name Carmine Referring Provider Last Name Kyle Referring Provider [facility] ashice Referred Provider Specialty Dermatology General Notes Darlene [...] 03/22/2016 Administered xFlu shot- 6months-36 months of iwe-NZVP-LFKT-trivalent Unknown 03/24/2017 Administered Tetanus Tdap-Adacel (over 7yrs) [...] W/U Status Risk Notes Problem Essential hypertension (16756614) Essential hypertension (I10) Active confirmed Problem Type II diabetes mellitus without complication (335936523) Type 2 diabetes mellitus without complication (E11.9) Active confirmed Problem Erectile dysfunction (disorder) (968444837) Erectile dysfunction, unspecified erectile dysfunction type (N52.9) Active confirmed Problem Hyperlipidaemia (23850928) Hyperlipidemia, unspecified hyperlipidemia type (E78.5) Active confirmed Problem Tobacco user (449473930) Cigarette nicotine dependence without complication (F17.210) Active confirmed Problem Obesity (925523541) Non morbid obesity (E66.9) Active confirmed Problem Basal cell carcinoma of neck (disorder) (703113759) Basal cell carcinoma (BCC) of neck (C44.41) Active confirmed Vital Signs Heart Rate 61 /min 12/27/2024 Blood pressure diastolic 74 mm Hg 12/27/2024 Height 69.50 in 12/27/2024 Blood pressure systolic 116 mm Hg 12/27/2024 Weight 207 lbs 12/27/2024 BMI 30.13 kg/m2 12/27/2024 Encounters Encounter Location Date Provider Diagnosis [facility] [address] [place], [place] [id number] 04/05/2024 Carmine Wright Type 2 diabetes phi itus without complication E11.9 ; Essential hypertension I10 ; Hyperlipidemia, unspecified hyperlipidemia type E78.5 ; Polyarthralgia M25.50 ; Prostate cancer screening Z12.5 and Encounter for immunization Z23 [facility] [address] [place], [place] [id number] 07/07/2024 Carmine [place] Pain in left shoulde r M25.512 ; Tendinitis of left rotator cuff M75.82 ; Pain in right hand M79.641 ; Pain in left hand M79.642 and History of carpal tunnel release Z98.890 [facility] [address] [place], [place] [id number] 10/04/2024 Carmine [place] Type 2 diabetes phi itus without complication E11.9 ; Essential hypertension I10 ; Hyperlipidemia, unspecified hyperlipidemia type E78.5 ; Left shoulder pain, unspecified chronicity M25.512 and BMI 29.0-29.9,adult Z68.29 [facility] [address] [place], [place] [id number] 11/22/2024 Carmine [place] Neoplasm of uncertai n behavior of skin of neck D48.5 and Erectile dysfunction, unspecified erectile dysfunction type N52.9 [facility] [address] [place], [place] [id number] 12/27/2024 Carmine [place] Basal cell carcinoma (BCC) of neck C44.41 [facility] [address] [place], [place] [id number] 04/06/2024 Carmine Summit [facility] [address] [place], [place] [id number] 06/06/2024 Carmine Summit [facility] [address] [place], [place] [id number] 10/05/2024 Carmine Summit [facility] [address] [place], [place] [id number] 11/27/2024 Carmine Summit [facility] [address] [place], [place] [id number] 12/11/2024 Carmine Summit [facility] [address] [place], [place] [id number] 01/02/2025 Carmine Summit [facility] [address] [place], [place] [id number] 01/04/2025 Carmine [place] Encounter for screen ing for malignant neoplasm of respiratory organs Z12.2 and Cigarette smoker F17.210 Assessments Encounter Date Diagnosis (ICD Code) Assessment Notes Treatment Notes Treatment Clinical Notes Section Notes 04/05/2024 Essential hypertension (ICD-10 - I10) 04/05/2024 Type 2 diabetes mellitus without complication (ICD-10 - E11.9) 07/07/2024 Pain in left shoulder (ICD-10 - M25.512) 07/07/2024 Tendinitis of left rotator cuff (ICD-10 - M75.82) 10/04/2024 Essential hypertension (ICD-10 - I10) 10/04/2024 Type 2 diabetes mellitus without complication (ICD-10 - E11.9) 12/27/2024 Basal cell carcinoma (BCC) of neck (ICD-10 - C44.41) Patient needs to see a [facility] surgeon 01/04/2025 Encounter for screening for malignant neoplasm of respiratory organs (ICD-10 - Z12.2) 01/04/2025 Cigarette smoker (ICD-10 - F17.210) 11/22/2024 Erectile dysfunction, unspecified erectile dysfunction type (ICD-10 - N52.9) 11/22/2024 Neoplasm of uncertain behavior of skin of neck (ICD-10 - D48.5) 10/04/2024 Hyperlipidemia, unspecified hyperlipidemia type (ICD-10 - E78.5) 04/05/2024 Hyperlipidemia, unspecified hyperlipidemia type (ICD-10 - E78.5) 07/07/2024 Pain in right hand (ICD-10 - M79.641) 07/07/2024 Pain in left hand (ICD-10 - M79.642) 10/04/2024 Left shoulder pain, unspecified chronicity (ICD-10 - M25.512) Patient to start physical therapy soon at [facility]. He will follow up with ortho 04/05/2024 Polyarthralgia (ICD-10 - M25.50) 07/07/2024 History of carpal tunnel release (ICD-10 - Z98.890) 10/04/2024 BMI 29.0-29.9,adult (ICD-10 - Z68.29) 04/05/2024 Prostate cancer screening (ICD-10 - Z12.5) 04/05/2024 Encounter for immunization (ICD-10 - Z23) Plan Of Treatment Next Appt Details Provider Name:Carmine Deutsch ry, 04/06/2025 09:00:00 AM, [address], [place], [id number], Insurance Providers Payer Name Payer Address Payer Phone Subscriber Number Group Number Insured Name Patient Relationship to Insured Coverage Start Date Coverage End Date [employer] [address] [place] [address] [id number] HERMINIO DAVIS Self - patient is [...] 01/2016 Colonoscopy 2021 Hospitalization History Reason Date(Month/Year) [facility] 03/23/2020
--- NOTE | 2025-02-02 12:20 | ECG_ITS ---
APPROVED REPORT Exam: Resting ECG HR:71 bpm ECG Measurements Heart Rate 71 AXES AK 191 P 44 QRSd 96 QRS 44 QT 372 T 48 QTc 394 Conclusion SINUS RHYTHM NORMAL ECG UNCONFIRMED REPORT Electronically signed by : Burt Ballard MD 02/05/2025 14:34:10
[2025-02-02 12:48] LABS: Hematocrit 44.3 % (42.0-52.0); Hemoglobin 15.2 g/dL (14.1-18.0); Immature Granulocytes % 0.6 %; Mean Corpuscular HGB Conc 34.3 g/dL (31.8-35.4); Mean Corpuscular Hemoglobin 31.6 pg (27.0-31.2); Mean Corpuscular Volume 92.1 fl (80-94); Nucleated Red Blood Cells % 0 %; Platelet Count 186 K/mm3 (142-424); Red Blood Count 4.81 M/mm3 (4.60-6.20); Red Cell Distribution Width-SD 43.5 fL; White Blood Count 14.6 K/mm3 (4.8-10.8)
[2025-02-02 13:02] LABS: Anion Gap 11.9 mEq/L (5-15); Blood Urea Nitrogen 11 mg/dl (9-20); Calcium 8.6 mg/dl (8.4-10.2); Carbon Dioxide 25 mmol/L (22.0-30.0); Chloride 104 mmol/L (98-107); Creatinine Clearance Estimated 129 mL/min (50-200); Creatinine,Serum 0.80 mg/dl (0.66-1.25); Estimated Glomerular Filt Rate 99 ml/min (>60); GFR (African American) 119 ML/MIN (>60); Glucose 100 mg/dl (74-100); Potassium 3.9 mmoL/L (3.5-5.1); Sodium 137 mmol/L (136-145)
== END 2025-02-02 23:59 | disposition home or self-care (01) ==
LOC: PREOP 12:00
PROVIDERS: PCP Family Medicine; Visit Provider Orthopaedic Surgery
DX: Z01.810 Encounter for preprocedural cardiovascular examination (principal)
CPT/HCPCS: 80048; 85025; 93005

== ENCOUNTER 2025-02-06 06:43 | Day surgery (SDC) | payer BC, SELFPAY ==
--- NOTE | 2025-02-02 13:32 | SUR.PREOP ---
Spoke w/ Dr Louise's office, determined ok to not obtain CXR since pt had lung CT on 01/11/25. Order cancelled.
[2025-02-02 13:37] VITALS: BMI 31.9
[2025-02-06] VITALS (11 sets, daily range): BP systolic 125–155; BP diastolic 64–94; PULSE 70–82; RESP 12–18; TEMP 36.1–36.4; O2SAT 91–98; BMI 31.9
[2025-02-06] MEDS: LACTATED RINGERS 1000ML 1,000 ML 100 ML IV (07:19)
[2025-02-06 07:20] LABS: POC Glucose,Bedside 139 gm/dL (70-110)
--- NOTE | 2025-02-06 07:37 | EXP.ANES.CKL ---
[facility] Disclaimer: The information contained in this section may have been updated after the patient was seen, as this information can be updated by other users. Medical History High cholesterol High blood pressure Type 2 diabetes mellitus Surgical History History of carpal tunnel release Family History Other Family history of heart disease Social History (Updated 02/06/25 @ 07:00 by Gaviota Erickson RN) Smoking Status: Current every day smoker alcohol intake: never substance use type: other current occupational status: employed Travel in the last 8 weeks?: Inside the [place] caffeine: No Have you lived/traveled outside US in past 30 days?: No Contact w/someone who lives/traveled outside US past 30 days?: No Exposure to someone with infectious disease in past 14 days?: No Do you have a fever (greater than 100.4 F or 38 C)?: No Have you tested positive for COVID-19?: No Exposed to someone with COVID-19 in past 14 days?: No Do you have a sore throat?: No Do you have a cough?: No Do you have any weakness?: No Are you experiencing any nausea/vomitting?: No Do you have any diarrhea?: No Are you experiencing any unusual bleeding?: No Do you have any muscle aches/pain?: No Do you have any abdominal pain?: No Are you experiencing loss of taste or smell?: No [facility] Anesthesia Checklist Patient Identification Patient Identification: Verbal (Name & ) Structural Data Admitted From: Home Planned Operative Procedure/s: l rotator cuff repair Consent for Planned Operative Procedure(s) Verified: Yes NPO Status Verified Time NPO: 00:00 Additional verifications Anesthesia Reactions: No Hx Blood Transfusions: No Blood Transfusion Reaction: No Airway Assessment Mallampati Score:: Class II C-Spine Mobility Assessed: Yes TMJ Mobility Assessed: Yes Dentition: Dentures-good fit Neurological Assessment Level of Consciousness: Awake, Alert and Appropriate Anesthesia Plan Anesthesia Risk discussed: Yes Anesthesia Plan: Verified ASA Class: II Anesthesia Type: General w/block Preoperative Comments Pre-Operative Comments: explained BP block to pt incl risks and benefits, pt agrees to proceed
[2025-02-06] MEDS: CLINDAMYCIN PHOSPHATE/D5W 900 MG/50 ML PIGGYBACK 100 MG IV (08:43)
[2025-02-06] MEDS: RINGERS SOLUTION,LACTATED 6,000 ML 25 ML IR (09:23)
[2025-02-06] MEDS: EPINEPHrine 1MG/ML 30ML VIAL 30 MG ×2 (09:23→09:29)
--- NOTE | 2025-02-06 10:07 | P.PNANES_ITS ---
[facility] Anesthesia Record Part I Anesthesia Record I Intake, IV Amount: 1,000 Hydration: Adequate Estimated blood loss (mL): 10 Urine output (mL): 0 Blood Pressure: 152/94 SaO2: 92 Pulse Rate: 82 Airway Patency: Patent Respiratory Rate: 12 Temperature: 97.5 F Patient is:: Awake and Stable Stable to PACU at:: 10:05
--- NOTE | 2025-02-06 10:10 | EXP.OP.NOTE ---
Date of procedure: 02/06/25 Pre-op Diagnosis:: Left shoulder full-thickness rotator cuff tear Post-op Diagnosis:: Left shoulder full-thickness rotator cuff tear, supraspinatus Procedure performed:: Left shoulder arthroscopy with rotator cuff repair Surgeon:: Rolando Louise DO Remote Sensing Specialist(s):: Clif [employer]:: Nael Sumner Anesthesia: GETA Estimated blood loss (mL): 0 Operative findings:: Full-thickness rotator cuff tear as above Operative note:: Patient identified preoperatively. Left shoulder marked with yes and my initials. Underwent a peripheral block with anesthesia. Then taken the operating room placed upon the operating bed. General anesthesia administered airway secured. Then placed in a lateral position with a beanbag and all bony prominences well padded. Left arm was then placed in line traction with the arm rios. Left shoulder prepped and draped in normal sterile fashion. Once prepped and draped final operative timeout performed to identify proper patient procedure and extremity. Everyone involved in the case agreed. There were no counter indications to beginning. Did receive preoperative antibiotics. Marking pen was used to shaquille the bony landmarks of the shoulder and standard portal sites. Skin knife was used incise posterior viewing portal blunt with trocar was placed into the glenohumeral joint and exchanged with a camera. I moved directly anteriorly just above the subscapularis tendon where the anterior working portal was made and a purple working cannula was placed. Intra-articular examination of the shoulder revealed labrum intact biceps intact undersurface showed full-thickness rotator cuff tear. Attention was then brought to the subacromial space where the cannulas were switched into the subacromial space. A lateral portal was established under direct visualization with a spinal needle. The atraumatic rotator cuff grasper was utilized to evaluate the rotator cuff tear which was full-thickness in nature. It was easily reducible to the footprint. Footprint was debrided edge of the rotator cuff debrided and using a speed fix technique fiber tape was placed through the rotator cuff through a single 4.75 mm swivel lock anchor This gave good repair of the rotator cuff back to the footprint. Pictures were taken no further pathology seen in the shoulder no significant subacromial bursitis present. Camera removed the joint drain skin closed with nylon stitch sterile dressing placed abduction pillow and sling placed patient taken recovery room in stable condition. Condition: stable Disposition: PACU Complications:: None apparent
--- NOTE | 2025-02-06 13:52 | P.PNANES_ITS ---
[facility] Anesthesia Record Part II Anesthesia Record Part II Discharge Time: 11:20 Destination: Surgical Day Care (OP Surgery) PACU nurse assessment reviewed?: Yes Patient Condition:: Good Anesthesia Complications:: None Swallowing reflex intact?: Yes Airway Patency: Patent Cyanosis?: No Blood Pressure: 131/64 SaO2: 98 Respiratory Rate: 18 Pulse Rate: 76 Temperature: 97.0 F Mental Status: Alert & Oriented Pain level:: 0 Nausea and/or vomitting:: None Intake, IV Amount: 0 Hydration: Adequate
== END 2025-02-06 11:43 | disposition home or self-care (01) ==
PROVIDERS: PCP Family Medicine; Visit Provider Orthopaedic Surgery
PROC: (CPT 29827; principal; 2025-02-06 08:15)
DX: M75.102 Unspecified rotator cuff tear or rupture of left shoulder, not specified as traumatic (principal); I10 Essential (primary) hypertension; E78.00 Pure hypercholesterolemia, unspecified; E11.9 Type 2 diabetes mellitus without complications; F17.200 Nicotine dependence, unspecified, uncomplicated; Z88.0 Allergy status to penicillin; Z79.84 Long term (current) use of oral hypoglycemic drugs; Z79.899 Other long term (current) drug therapy
CPT/HCPCS: 29827; 82962; 96374; C1713; J0169; J0736; J1100; J1885; J2003; J2250; J2405; J2704; J3010; J7120

== ENCOUNTER 2025-03-30 08:00 | Outpatient (RCR) | payer BC, SELFPAY ==
--- NOTE | 2025-03-28 15:29 | HMH.OTOPEV ---
OT Evaluation Rehab OT Outpatient Eval Start: 03/28/25 15:22 Freq: Status: Active Protocol: Document 03/28/25 15:22 RMARSBREANNA (Rec: 03/28/25 15:29 [facility] [id number]) E-signed By Esteban Burch, OT Outpatient Therapy Subjective History Subjective History Pt is a 59 year old male who reports to therapy for initial evaluation to L shoulder. Pt is currently 7 weeks post op from RTC repair of supraspinatus (02/06/25) . Pt is left hand dominant. Pt is currently beginning to wean himself out of his sling. Pt demonstrates with decreased AROM and strength at left shoulder. 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 Pt will continue to be seen twice a week in order to address left shoulder deficits. New diagnosis of No cancer in past 12 months? Chief Complaint Pain,Stiff,Weakness Symptom Type Ache,Dull Symptoms Relieved By Rest/Positioning Symptoms Aggravated Physical Activity,Lifting By Prior Functional None Limitations Current Functional Reaching,Lifting,Housework,Dressing,Sleeping,Recreation Limitations Activity Symptom Description Intermittent,Activity Dependent Level of pain today 0 (0-10) Pain scale - at its 0 best (0-10) Pain scale - at its 4 worst (0-10) Shoulder/Elbow Eval Shoulder Objective Measurements Shoulder ROM Left Shoulder Abduction 85 degrees Active Range of Motion (degrees) Shoulder Flexion 95 degrees Active Range of Motion (degrees) Query Text: Shoulder External 45 degrees Rotation Active Range of Motion ( degrees) Shoulder Internal 30 degrees Rotation Active Range of Motion ( degrees) Shoulder MMT Shoulder Abduction 3 Fair Strength Grade Shoulder Flexion 3 Fair Strength Grade Shoulder External 3 Fair Rotation Strength Grade Shoulder Internal 3 Fair Rotation Strength Grade Shoulder Strength Sitting Patient Testing Position Elbow Objective Measurements QuickDASH Activities Please rate your ability to do the following activities in the last week by selecting the number below the appropriate response. 1. Open a tight or Mild difficulty new jar. 2. Do heavy Mild difficulty agitator operator (e. g., wash fall, floors). 3. Carry a shopping Mild difficulty bag or briefcase. 4. Wash your back. Mild difficulty 5. Use a knife to Mild difficulty cut food. 6. Recreational Moderate difficulty activities in which you take some force or impact through your arm, shoulder, or hand (e.g., golf, hammering, tennis, etc.). 7. During the past Moderately week, to what extent has your arm, shoulder or hand problem interfered with your normal social activities with family, friends , neighbors or groups? 8. During the past Very limited week, were you limited in your work or other regular daily activites as a result of your arm, shoulder or hand problem? 9. Arm, shoulder or Mild hand pain. 10. Tingling (pins None and needles) in your arm, shoulder or hand. 11. During the past Moderate difficulty week, how much difficulty have you had sleeping because of the pain in your arm, shoulder or hand? Quick DASH 26 OT Patient Goals OT Patient Goals OT Short Term 1. Pt will increase left shoulder flexion to 110 Patient Goals degrees in order to complete daily overhead tasks independently ~50% of the time. 2. Pt will increase L shoulder abduction to 110 degrees to complete upper body dressing independently ~ 50% of the time. 3. Pt will increase L shoulder ER/IR to 60 degrees (ER ) and 45 degrees (IR) in order to complete lower body dressing (putting on and taking off belt) independently ~50% of the time. 4. Pt will increase strength to 3+/5 throughout left shoulder in order to complete heavier household tasks ( laundry, mopping, vacuuming) independently ~50% of the time. 5. Pt will verbalize decreased pain levels at worst in L shoulder to a 2/10 in order to complete daily ADLs independently ~50% of the time. 6. Pt will demonstrate improved endurance by completing left shoulder exercises for ~20 minutes prior to rest break in order to increase his tolerance for daily work activities. 7. Pt will demonstrate independence with HEP of AAROM exercises to increase overall functional use of left shoulder in daily activities ~75% of the time. OT Residential Patient 1. Pt will increase L shoulder flexion to 125 degrees Goals in order to complete daily overhead tasks independently ~75% of the time. 2. Pt will increase L shoulder abduction to 120 degrees to complete upper body dressing independently ~ 75% of the time. 3. Pt will increase L shoulder ER/IR to 70 degrees (ER ) and 60 degrees (IR)in order to complete lower body dressing (putting on and taking off belt) independently ~75% of the time. 4. Pt will increase strength to 4-/5 throughout left shoulder in order to complete heavier household tasks ( laundry, mopping, vacuuming) independently ~75% of the time. 5. Pt will verbalize decreased pain levels at worst in L shoulder to a 1/10 in order to complete daily ADLs independently ~75% of the time. 6. Pt will demonstrate improved endurance by completing L shoulder exercises for ~30 minutes prior to rest break in order to increase his tolerance for daily work activities. 7. Pt will demonstrate independence with HEP of Rotator cuff strengthening exercises to increase overall functional use of L shoulder for daily activities ~90% of the time. OT Outpatient Assessment Impairments Problems/Impairments Palpation Tenderness,Impaired Range of Motion,Impaired Strength,Impaired Endurance,Impaired Lifting,Impaired Dressing,Impaired Shower/Bathing,Impaired Household Care,Impaired Recreational Activities,Impaired Work Activities,Subjective C/O Pain Prognosis Rehab Potential Good Clinical Impression Consistent with Yes Diagnosis Outpatient Therapy Plan of Care Treatment Plan May Include Therapeutic Exercise Yes Including Home Exercise Program Manual Therapy Yes Techniques Neuromuscular Re- Yes education Therapeutic Yes Activities to Return to Previous Functional/Work Level ADL/Self Care Yes Education Dry Needling Yes Thermal Modalities Yes Electrical Yes Stimulation Ultrasound/ Yes Phonophoresis Iontophoresis Yes Massage Yes Eval/Re-Eval Yes Frequency Times per week 2 Duration Number of Weeks 6 Addendums This patient is a No candidate for social or vocational rehab ? Patient/Guardian Yes verbally acknowledges understanding of treatment program and consents to further treatment? Patient/Guardian Yes verbally acknowledges understanding of diagnosis, prognosis and goals for treatment? Eval Complexity OT Charge 29030 - Moderate Complexity PHYSICIAN CERTIFICATION: I certify the specified therapy services for Herminio Davis are required, authorized, and reviewed every 30 days.
== END 2025-03-30 23:59 | disposition home or self-care (01) ==
LOC: OT 08:00
PROVIDERS: PCP Family Medicine; Visit Provider Orthopaedic Surgery
DX: Z47.89 Encounter for other orthopedic aftercare (principal); Z98.890 Other specified postprocedural states
CPT/HCPCS: 97014; 97110; 97140; 97166; G0283

== ENCOUNTER 2025-04-25 10:00 | Outpatient (RCR) | payer BC, SELFPAY ==
--- NOTE | 2025-04-23 11:42 | [facility].RHREAS ---
Rehab Reassessment Rehab OP Re-assessment Start: 04/03/25 10:50 Freq: Status: Active Protocol: Document 04/23/25 10:49 RMRASHEL (Rec: 04/23/25 11:42 RMARSHALL [id number]) E-signed By Esteban Burch OT QuickDASH Activities Please rate your ability to do the following activities in the last week by selecting the number below the appropriate response. 1. Open a tight or Mild difficulty new jar. 2. Do heavy Moderate difficulty transfer and pumphouse operator chief (e. g., wash fall, floors). 3. Carry a shopping No difficulty bag or briefcase. 4. Wash your back. Moderate difficulty 5. Use a knife to Mild difficulty cut food. 6. Recreational Moderate difficulty activities in which you take some force or impact through your arm, shoulder, or hand (e.g., golf, hammering, tennis, etc.). 7. During the past Slightly week, to what extent has your arm, shoulder or hand problem interfered with your normal social activities with family, friends , neighbors or groups? 8. During the past Moderately limited week, were you limited in your work or other regular daily activites as a result of your arm, shoulder or hand problem? 9. Arm, shoulder or Mild hand pain. 10. Tingling (pins Mild and needles) in your arm, shoulder or hand. 11. During the past Mild difficulty week, how much difficulty have you had sleeping because of the pain in your arm, shoulder or hand? Quick DASH 25 Rehab Re-assessment Subjective Subjective Better, but still stiff. Objective Objective Notes Pt continues to be seen twice a week in order to address left shoulder deficits. Pt is currently 11 weeks s/p from RTC repair. Each session, pt engages in AROM, AAROM, and strengthening exercises for L shoulder in order to improve overall functional use. Pt also receives PROM manual stretching in all planes at L shoulder (flexion, abduction, ER, and IR) following protocol. Modalities are provided in order to decrease pain/inflammation. Assessment Progress Assessment Progressing as Expected Assessment Notes Pt is very consistent about attending therapy sessions twice a week. Pt is also very consistent about completing home exercise program independently. Pt demonstrates improvement with overall AROM at left shoulder since initial evaluation. He reports his worst pain reaching a 3/10. Pt follows up with ortho on May 07. Current AROM L shoulder: Flex: 150 degrees Abd: 155 degrees ER: 80 degrees IR: 55 degrees Goals Met: Short term Goals: 1. Pt will increase left shoulder flexion to 110 degrees in order to complete daily overhead tasks independently ~50% of the time. 2. Pt will increase L shoulder abduction to 110 degrees to complete upper body dressing independently ~ 50% of the time. 3. Pt will increase L shoulder ER/IR to 60 degrees (ER ) and 45 degrees (IR) in order to complete lower body dressing (putting on and taking off belt) independently ~50% of the time. 4. Pt will increase strength to 3+/5 throughout left shoulder in order to complete heavier household tasks ( laundry, mopping, vacuuming) independently ~50% of the time. 5. Pt will verbalize decreased pain levels at worst in L shoulder to a 2/10 in order to complete daily ADLs independently ~50% of the time. 6. Pt will demonstrate improved endurance by completing left shoulder exercises for ~20 minutes prior to rest break in order to increase his tolerance for daily work activities. 7. Pt will demonstrate independence with HEP of AAROM exercises to increase overall functional use of left shoulder in daily activities ~75% of the time. OT Patient Goals OT Short Term All goals met Patient Goals OT [facility] Patient 1. Pt will increase L shoulder flexion to 165 degrees Goals in order to complete daily overhead tasks independently ~75% of the time. 2. Pt will increase L shoulder abduction to 165 degrees to complete upper body dressing independently ~ 75% of the time. 3. Pt will increase L shoulder ER/IR to 90 degrees (ER ) and 60 degrees (IR)in order to complete lower body dressing (putting on and taking off belt) independently ~75% of the time. 4. Pt will increase strength to 4-/5 throughout left shoulder in order to complete heavier household tasks ( laundry, mopping, vacuuming) independently ~75% of the time. 5. Pt will verbalize decreased pain levels at worst in L shoulder to a 1/10 in order to complete daily ADLs independently ~75% of the time. 6. Pt will demonstrate improved endurance by completing L shoulder exercises for ~30 minutes prior to rest break in order to increase his tolerance for daily work activities. 7. Pt will demonstrate independence with HEP of Rotator cuff strengthening exercises to increase overall functional use of L shoulder for daily activities ~90% of the time. Plan Plan Continue with OT plan of care in order to address all Left shoulder deficits to improve overall occupational performance. Frequency of Therapy 2x's a week Duration of Therapy 4 more weeks Therapeutic Exercise Yes Including Home Exercise Program Manual Therapy Yes Techniques Neuromuscular Re- Yes education Therapeutic Yes Activities to Return to Previous Functional/Work Level ADL/Self Care Yes Education Thermal Modalities Yes Electrical Yes Stimulation Ultrasound/ Yes Phonophoresis Iontophoresis Yes Orthotics/Bracing/ Yes Splinting Massage Yes Eval/Re-Eval Yes Time and Billing Re-Eval Time 8 Re-Eval Billing 0 Units Charge for OT No reassessment? PHYSICIAN CERTIFICATION: I certify the specified therapy services for Herminio Davis are required, authorized, and reviewed every 30 days.
== END 2025-04-25 23:59 | disposition home or self-care (01) ==
LOC: OT 10:00
PROVIDERS: PCP Family Medicine; Visit Provider Orthopaedic Surgery
DX: M25.512 Pain in left shoulder (principal)
CPT/HCPCS: 97014; 97110; 97140; G0283

== ENCOUNTER 2025-05-21 11:00 | Outpatient (RCR) | payer BC, SELFPAY ==
--- NOTE | 2025-05-07 08:54 | [facility].RHREAS ---
Rehab Reassessment Rehab OP Re-assessment Start: 05/07/25 07:54 Freq: Status: Active Protocol: Document 05/07/25 07:55 RMARSHALL (Rec: 05/07/25 08:54 RMARSHALL [id number]) E-signed By Esteban Burch OT Rehab Re-assessment Subjective Subjective I don't have as much pain. Objective Objective Notes Pt continues to be seen twice a week in order to address left shoulder deficits. Pt is ~ 13 weeks s/p from RTC repair. Each session, pt engages in AROM, AAROM, and strengthening exercises for L shoulder in order to improve overall functional use. Pt also receives PROM manual stretching in all planes at L shoulder (flexion, abduction, ER, and IR) following protocol. Modalities are provided in order to decrease pain/inflammation. Assessment Progress Assessment Progressing as Expected Assessment Notes Pt is very consistent about attending therapy sessions twice a week. Pt is also very consistent about completing home exercise program independently. Pt returns to ortho today for follow up appointments. Pt' s AROM has improved with ER and IR. Flexion/Abduction remains the same since last re-assessment. Pt reports some pain intermittently reaching 3/10 at worst. It is very important to continue therapy sessions to improve functional use of L shoulder. Current AROM L shoulder: Flex: 150 degrees Abd: 155 degrees ER: 85 degrees IR: 70 degrees Goals Met: Short term Goals: 1. Pt will increase left shoulder flexion to 110 degrees in order to complete daily overhead tasks independently ~50% of the time. 2. Pt will increase L shoulder abduction to 110 degrees to complete upper body dressing independently ~ 50% of the time. 3. Pt will increase L shoulder ER/IR to 60 degrees (ER ) and 45 degrees (IR) in order to complete lower body dressing (putting on and taking off belt) independently ~50% of the time. 4. Pt will increase strength to 3+/5 throughout left shoulder in order to complete heavier household tasks ( laundry, mopping, vacuuming) independently ~50% of the time. 5. Pt will verbalize decreased pain levels at worst in L shoulder to a 2/10 in order to complete daily ADLs independently ~50% of the time. 6. Pt will demonstrate improved endurance by completing left shoulder exercises for ~20 minutes prior to rest break in order to increase his tolerance for daily work activities. 7. Pt will demonstrate independence with HEP of AAROM exercises to increase overall functional use of left shoulder in daily activities ~75% of the time. 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 Pt will increase L shoulder flexion to 165 degrees Goals in order to complete daily overhead tasks independently ~75% of the time. 2. Pt will increase L shoulder abduction to 165 degrees to complete upper body dressing independently ~ 75% of the time. 3. Pt will increase L shoulder ER/IR to 90 degrees (ER ) and 70 degrees (IR)in order to complete lower body dressing (putting on and taking off belt) independently ~75% of the time. 4. Pt will increase strength to 4-/5 throughout left shoulder in order to complete heavier household tasks ( laundry, mopping, vacuuming) independently ~75% of the time. 5. Pt will verbalize decreased pain levels at worst in L shoulder to a 1/10 in order to complete daily ADLs independently ~75% of the time. 6. Pt will demonstrate improved endurance by completing L shoulder exercises for ~30 minutes prior to rest break in order to increase his tolerance for daily work activities. 7. Pt will demonstrate independence with HEP of Rotator cuff strengthening exercises to increase overall functional use of L shoulder for daily activities ~90% of the time. Plan Plan Continue with OT plan of care in order to address all Left shoulder deficits to improve overall occupational performance. Frequency of Therapy 2x's a week Duration of Therapy 6 more weeks Therapeutic Exercise Yes Including Home Exercise Program Manual Therapy Yes Techniques Neuromuscular Re- Yes education Therapeutic Yes Activities to Return to Previous Functional/Work Level ADL/Self Care Yes Education Thermal Modalities Yes Electrical Yes Stimulation Ultrasound/ Yes Phonophoresis Iontophoresis Yes Massage Yes Eval/Re-Eval Yes Time and Billing Re-Eval Time 9 Re-Eval Billing 0 Units Charge for OT No reassessment? PHYSICIAN CERTIFICATION: I certify the specified therapy services for Herminio Davis are required, authorized, and reviewed every 30 days.
== END 2025-05-21 23:59 | disposition home or self-care (01) ==
LOC: OT 11:00
PROVIDERS: PCP Family Medicine; Visit Provider Orthopaedic Surgery
DX: S46.012D Strain of muscle(s) and tendon(s) of the rotator cuff of left shoulder, subsequent encounter (principal)
CPT/HCPCS: 97014; 97110; 97140; G0283